=== PATIENT | male | born 1985 | race Hispanic/Latino ===

== ENCOUNTER → 2024-02-10 | Outpatient (CLI) | payer OTHER ==
[~2024-02-10] MED LIST: ISOVUE-300 61% 100ML VIAL As Ordered ONE; LIDOCAINE 1% MDV 20ML VIAL As Ordered ONE; PROHANCE 279.3MG/ML 5ML VIAL As Ordered ONE
== END ==
LOC: M RAD 06:10
PROVIDERS: ATTEND Physician Assistant
DX: M25.531 Pain in right wrist (principal)
CPT/HCPCS: 25246; 73223; 77002; A9576; Q9967

== ENCOUNTER → 2024-03-19 | Outpatient (CLI) | payer OTHER | LOC: M PLAIMG 16:10 | PROVIDERS: ATTEND Orthopaedic Surgery Hand Surgery | DX: M25.532 Pain in left wrist (principal) ==

== ENCOUNTER → 2024-04-15 | Outpatient (CLI) | payer OTHER ==
[~2024-04-15] MED LIST changes: +ACET-840; +ASHW500C PO; +FLAX1300 PO; -ISOVUE-300 61% 100ML VIAL As Ordered ONE; -LIDOCAINE 1% MDV 20ML VIAL As Ordered ONE; +OMEP40CA5; +PERC5TAB12 PO; -PROHANCE 279.3MG/ML 5ML VIAL As Ordered ONE; +VITA200012 PO; +VITA500C24 PO
== END ==
LOC: M EKG 09:00
PROVIDERS: ATTEND Anesthesiology
DX: Z01.818 Encounter for other preprocedural examination (principal); G47.30 Sleep apnea, unspecified

== ENCOUNTER 2024-04-20 06:12 | Day surgery (SDC) | payer OTHER ==
[~2024-04-20] VITALS: Ht 170.2 cm; Wt 94.3 kg
[~2024-04-20 06:12] MED LIST changes: +GLYCOPYRROLATE INJ 0.2 MG/ML 2 ML VIAL As Ordered ONE; +ONDANSETRON 4MG 2ML VIAL As Ordered ONE; -PERC5TAB12 PO; +SUGAMMADEX SODIUM 500 MG/5 ML VIAL (BRIDION) As Ordered ONE; +propofoL 200 MG/20 ML VIAL As Ordered ONE
[2024-04-20] MEDS ORDERED: LIDOCAINE 2% 100MG/5ML SDV (FOR ANES.) As Ordered ONE (06:13)
[2024-04-20] MEDS ORDERED: fentaNYL 100 MCG/2 ML INJECTION As Ordered ONE (06:22)
[2024-04-20] MEDS ORDERED: MIDAZOLAM INJ 2MG/2ML VIAL As Ordered ONE (06:22)
[2024-04-20] MEDS: NS 1,000 ML IV SCH (07:24)
[2024-04-20] MEDS: LEVALBUTEROL 1.25MG 0.5ML CONCENTRATE NEB NEB ONE (07:34)
[2024-04-20] MEDS ORDERED: ceFAZolin 2 GM/D5W 50 ML IV BAG As Ordered ONE (07:47)
[2024-04-20] MEDS: ceFAZolin SOD 2 GM in IV 1 EA IV ONE (08:10)
[2024-04-20] MEDS ORDERED: PHENYLephrine 500MCG 5ML (100MCG/ML) SYRINGE As Ordered ONE (08:27)
[2024-04-20] MEDS: BACITRACIN OINTMENT 30GM TUBE As Ordered ONE (09:30)
[2024-04-20] MEDS ORDERED: KETOROLAC 60MG 2ML VIAL As Ordered ONE (09:33)
[2024-04-20] MEDS ORDERED: NS 1,000 ML IV SCH (09:45)
[2024-04-20] MEDS ORDERED: HYDROMORPHONE HCL 0.5 MG/ 0.5 ML SYRINGE IV PRN (09:45)
[2024-04-20] MEDS ORDERED: fentaNYL 100 MCG/2 ML INJECTION IV PRN (09:45)
[2024-04-20] MEDS ORDERED: PERC5TAB12 PO (09:58)
[2024-04-20] MEDS: ONDANSETRON 4MG 2ML VIAL IV PRN (10:07)
[2024-04-20] MEDS: oxyCODONE 5MG TAB PO PRN (10:07)
[2024-04-20 10:18] VITALS: BP 119/74; TEMP 97.4; O2SAT 96
== END 2024-04-20 11:00 | disposition home or self-care (01) ==
LOC: M SDC 06:12
PROVIDERS: ATTEND Orthopaedic Surgery Hand Surgery
DX: M25.531 Pain in right wrist (principal); M65.931 Unspecified synovitis and tenosynovitis, right forearm
CPT/HCPCS: 29845; J0665; J0690; J1100; J1596; J1885; J2250; J2371; J2405; J3010